=== PATIENT | female | born 1970 ===

== ENCOUNTER 2020-07-24 10:45 | Inpatient (IN) | payer OTHER ==
[~2020-07-24] VITALS: Ht 177.8 cm; Wt 90.7 kg
[2020-08-02] MEDS ORDERED: Tylenol #3 PO (10:49)
[2020-08-02] MEDS ORDERED: NAPR500T14 PO (10:49)
== END 2020-08-02 12:15 | disposition home or self-care (01) | DRG 743 ==
LOC: O/R 07-30 05:40 → OB/GYN 07-30 05:40 → SURH 07-30 10:45 → OB/GYN 07-30 10:47 → SURH 07-30 15:15 → OB/GYN 08-02 12:15
PROVIDERS: ADMIT Obstetrics & Gynecology; ATTEND Obstetrics & Gynecology
PROC: 0UT10ZZ Resection of Left Ovary, Open Approach (ICD-10-PCS; 2020-07-30)
PROC: 0UT70ZZ Resection of Bilateral Fallopian Tubes, Open Approach (ICD-10-PCS; 2020-07-30)
PROC: 0TJB8ZZ Inspection of Bladder, Via Natural or Artificial Opening Endoscopic (ICD-10-PCS; 2020-07-30)
PROC: 0UT90ZZ Resection of Uterus, Open Approach (ICD-10-PCS; principal; 2020-07-30 15:15)
DX: D25.0 Submucous leiomyoma of uterus (principal); D25.1 Intramural leiomyoma of uterus; D25.2 Subserosal leiomyoma of uterus; N73.6 Female pelvic peritoneal adhesions (postinfective); N72 Inflammatory disease of cervix uteri; N87.9 Dysplasia of cervix uteri, unspecified; N80.0 Endometriosis of uterus; N83.292 Other ovarian cyst, left side; N83.8 Other noninflammatory disorders of ovary, fallopian tube and broad ligament; N92.1 Excessive and frequent menstruation with irregular cycle

== ENCOUNTER 2025-01-02 08:46 | Outpatient (CLI) | payer OTHER ==
[~2025-01-02 08:46] MED LIST: NAPR500T14 PO; Tylenol #3 PO
== END 2025-01-02 08:53 | disposition home or self-care (01) ==
LOC: SONOGRAMA 08:46
PROVIDERS: ATTEND Pathology Anatomic Pathology & Clinical Pathology
DX: D34 Benign neoplasm of thyroid gland (principal); E07.89 Other specified disorders of thyroid; R22.1 Localized swelling, mass and lump, neck